=== PATIENT | male | born 1985 | race African-American/Black ===

== ENCOUNTER 2023-09-10 23:12 | Emergency (ER) | payer MEDICAID ==
[~2023-09-10] VITALS: Ht 170.2 cm; Wt 70.6 kg
[~2023-09-10 23:12] MED LIST: ALBU6.7H3 INH; ATEN-42 PO; CYCL15CA PO; DIPH25CA83 PO; DIVA500T3 PO; FLUO60TA PO; GABA-529 PO; LEVE1000 PO; LISI2.5T47 PO; LORA-249 PO; MECL-299 PO; MIDO2.5T PO; MORP15TA67 PO; SOTA80TA PO; TOPA200 PO
[2023-09-10 23:54] VITALS: O2SAT 100
[2023-09-11 00:40] VITALS: TEMP 97.8
[2023-09-11] MEDS ORDERED: LEVETIRACETAM 500MG PREMIX 100 ML IV ONE (01:00)
[2023-09-11] MEDS ORDERED: SODIUM CHLORIDE 0.9% 1,000 ML IV ONE (01:00)
[2023-09-11 01:19] LABS: BASOPHILS % 0.7 % (0.0-2.0); EOSINOPHILS % 2.4 % (0.0-5.0); HEMOGLOBIN. 13.5 g/dL (14.0-18.0); MEAN CORPUSCULAR HEMOGLOBIN 26.7 pg (28.0-32.0); MEAN CORPUSCULAR HGB CONC 32.3 g/dL (31.0-37.0); MEAN CORPUSCULAR VOLUME 82.7 fL (80.0-94.0); MEAN PLATELET VOLUME 8.2 fl (7.4-10.4); MONOCYTES % 9.1 % (2.0-8.0); NEUTROPHILS % 52.8 % (40.0-76.0); PLATELET 228 x1000/uL (130-400); RED BLOOD CELL COUNT 5.07 mill/uL (4.7-6.1); RED CELL DISTRIBUTION WIDTH 14.7 % (11.6-14.6); WHITE BLOOD COUNT 8.8 x1000/uL (4.5-11.0)
[2023-09-11 01:27] LABS: CHLORIDE 105 mEq/L (98-107); INDEX HEMOLYSI 2 (1-3); INDEX ICTERIC 1 (1-4); INDEX LIPEMIC 1 (1-3); POTASSIUM 4.1 mEq/L (3.5-5.1); SODIUM 138 mEq/L (136-145)
[2023-09-11 01:39] LABS: ALANINE AMINOTRANSFERASE 19 IU/L (13-61); ALBUMIN 3.7 g/dL (3.4-5.0); ASPARTATE AMINOTRANSFERASE 19 IU/L (15-37); BILIRUBIN TOTAL 0.2 mg/dL (0.1-1.0); CARBON DIOXIDE 28 mEq/L (21-32); ETHANOL BLOOD < 10 mg/dL (<10); GLUCOSE 109 mg/dL (70-105); PROTEIN TOTAL 7.8 g/dL (6.0-8.3); TROPONIN I HIGH SENSITIVITY 7 ng/L (<78); UREA NITROGEN BLOOD 11 mg/dL (7-21); VALPROIC ACID <3.0 ug/mL ug/mL (50-100)
[2023-09-11] MEDS ORDERED: VALPROIC ACID 250MG CAPSULE PO ONE (04:15)
[2023-09-11 04:30] VITALS: BP 117/75; PULSE 77; RESP 14
== END 2023-09-11 04:30 | disposition home or self-care (01) ==
LOC: ER 23:20
DX: R56.9 Unspecified convulsions (principal); M54.50 Low back pain, unspecified; I50.9 Heart failure, unspecified; I25.2 Old myocardial infarction; Z95.0 Presence of cardiac pacemaker; Z79.899 Other long term (current) drug therapy
CPT/HCPCS: 99285; 80053; 80320; 80165; 85025; 84484; 36415; 71045; 72100; 93005; 96365; J1953; J7030; G0480

== ENCOUNTER 2024-07-29 05:09 | Emergency (ER) | payer MEDICAID ==
[~2024-07-29] VITALS: Ht 162.6 cm; Wt 85.0 kg
[2024-07-29 05:23] VITALS: TEMP 98.2; O2SAT 98
[2024-07-29 05:25] VITALS: BP 116/87; PULSE 82; RESP 18; O2SAT 99
[2024-07-29] MEDS: ONDANSETRON 4MG ODT PO ONE (06:05)
== END 2024-07-29 06:35 | disposition left against medical advice (07) ==
LOC: ER 05:09
DX: R07.89 Other chest pain (principal); I10 Essential (primary) hypertension; J45.909 Unspecified asthma, uncomplicated; Z88.5 Allergy status to narcotic agent; Z88.6 Allergy status to analgesic agent; Z79.899 Other long term (current) drug therapy; Z86.59 Personal history of other mental and behavioral disorders
CPT/HCPCS: 99283; 71045; 93005; Q0162

== ENCOUNTER 2025-06-02 14:03 | Emergency (ER) | payer MEDICAID ==
[~2025-06-02] VITALS: Ht 172.7 cm; Wt 72.5 kg
[~2025-06-02 14:03] MED LIST changes: -MIDO2.5T PO; +MIDO2.5T3 PO
[2025-06-02 14:05] VITALS: O2SAT 99
[2025-06-02] MEDS ORDERED: ONDANSETRON HCL 4MG/2ML INJ IV PRN (14:30)
[2025-06-02] MEDS: LEVETIRACETAM 500MG PREMIX 100 ML IV ONE (15:05)
[2025-06-02 15:20] LABS: CREATININE 1.0 mg/dL (0.6-1.3); UREA NITROGEN BLOOD 13 mg/dL (9-23)
[2025-06-02 15:26] LABS: BASOPHILS % 0.2 % (0.0-2.0); EOSINOPHILS % 1.5 % (0.0-5.0); HEMATOCRIT. 40.1 % (42.0-52.0); HEMOGLOBIN. 12.8 g/dL (14.0-18.0); LYMPHOCYTES % 32.7 % (20.0-50.0); MEAN PLATELET VOLUME 8.7 fl (7.4-10.4); MONOCYTES % 9.3 % (2.0-8.0); NEUTROPHILS % 56.3 % (40.0-76.0); PLATELET 214 x1000/uL (130-400); RED BLOOD CELL COUNT 4.77 mill/uL (4.7-6.1); RED CELL DISTRIBUTION WIDTH 15.0 % (11.6-14.6)
[2025-06-02 15:27] LABS: VALPROIC ACID < 3.0 ug/mL (50-100)
[2025-06-02] MEDS: TOPIRAMATE 100MG TABLET PO SCH (16:10)
[2025-06-02] MEDS: VALPROATE SODIUM 500 MG in SODIUM CHLORIDE 0.9% 100 ML IV SCH (16:10)
[2025-06-02 20:06] VITALS: BP 109/80; PULSE 66; RESP 14; TEMP 36.9; O2SAT 96
[2025-06-05 09:07] LABS: TOPIRAMATE <1.5 ug/mL (2.0-25.0)
== END 2025-06-02 20:23 | disposition home or self-care (01) ==
LOC: ER 14:03
DX: G40.909 Epilepsy, unspecified, not intractable, without status epilepticus (principal); I25.2 Old myocardial infarction; I10 Essential (primary) hypertension; J45.909 Unspecified asthma, uncomplicated; Z88.5 Allergy status to narcotic agent; Z88.6 Allergy status to analgesic agent; Z79.899 Other long term (current) drug therapy; Z86.73 Personal history of transient ischemic attack (TIA), and cerebral infarction without residual deficits
CPT/HCPCS: 99285; 96365; 96375; 80048; 82962; 80165; 85025; 36415; 93005; 82542; 80201; J1953; J3490; J7050

== ENCOUNTER 2025-08-25 12:40 | Inpatient (IN) | payer MEDICAID ==
[~2025-08-25] VITALS: Ht 167.6 cm; Wt 80.3 kg
[~2025-08-25 12:40] MED LIST changes: -ATEN-42 PO; -CYCL15CA PO; +DEPER5 MT; -DIVA500T3 PO; -LISI2.5T47 PO; +MIDO10TA3 MT; -MIDO2.5T3 PO; -SOTA80TA PO
[2025-08-25 12:50] VITALS: O2SAT 100
[2025-08-25] MEDS: ONDANSETRON HCL 4MG/2ML INJ IV ONE (13:39)
[2025-08-25] MEDS: MORPHINE SULFATE 4 MG/ML INJ (FOR IV/IM USE) IV ONE (13:40)
[2025-08-25 15:09] LABS: BASOPHILS % 0.4 % (0.0-2.0); EOSINOPHILS % 3.6 % (0.0-5.0); HEMATOCRIT. 38.1 % (42.0-52.0); HEMOGLOBIN. 12.3 g/dL (14.0-18.0); LYMPHOCYTES % 22.3 % (20.0-50.0); MEAN PLATELET VOLUME 8.2 fl (7.4-10.4); MONOCYTES % 14.0 % (2.0-8.0); NEUTROPHILS % 59.7 % (40.0-76.0); PLATELET 207 x1000/uL (130-400); RED BLOOD CELL COUNT 4.64 mill/uL (4.7-6.1); RED CELL DISTRIBUTION WIDTH 13.9 % (11.6-14.6)
[2025-08-25 15:26] LABS: CREATININE 0.9 mg/dL (0.6-1.3); UREA NITROGEN BLOOD 14 mg/dL (9-23)
[2025-08-25 15:27] LABS: ASPARTATE AMINOTRANSFERASE 29 IU/L (<34); BILIRUBIN DIRECT 0.1 mg/dL (<=3.0); ETHANOL BLOOD < 10 mg/dL (<10); TROPONIN I HIGH SENSITIVITY < 4 ng/L (3.0-53)
[2025-08-25 15:28] LABS: CLARITY URINE CLEAR (CLEAR); COLOR URINE YELLOW (YELLOW); GLUCOSE URINE NEGATIVE (NEGATIVE); KETONES URINE NEGATIVE (NEGATIVE); LEUKOCYTE ESTERASE URINE NEGATIVE (NEGATIVE); NITRITE URINE NEGATIVE (NEGATIVE); OCCULT BLOOD URINE NEGATIVE (NEGATIVE); PH URINE 6.0 (4.5-8.0); PROTEIN URINE NEGATIVE (NEGATIVE); SPECIFIC GRAVITY URINE 1.028 (1.005-1.030); UROBILINOGEN URINE 2.0 E.U./dL (0.2-1.0)
[2025-08-25 15:28] LABS: BILIRUBIN TOTAL 0.3 mg/dL (0.1-1.0); PROTEIN TOTAL 7.0 g/dL (6.0-8.3)
[2025-08-25 15:36] LABS: VALPROIC ACID < 3.0 ug/mL (50-100)
[2025-08-25 15:40] LABS: BACTERIA URINE NONE SEEN; RBC URINE NONE SEEN /hpf (0-2); SQUAMOUS EPITHELIAL CELL URINE NONE SEEN /lpf (RARE/1+); WBC URINE 0-2 /hpf (0-2)
[2025-08-25 15:42] LABS: *AMPHETAMINES SCREEN URINE NEGATIVE (NEGATIVE); *BARBITURATES SCREEN URINE NEGATIVE (NEGATIVE); *BENZODIAZEPINES SCREEN URINE NEGATIVE (NEGATIVE); *COCAINE SCREEN URINE NEGATIVE (NEGATIVE)
[2025-08-25 15:43] LABS: CANNABINOID URINE SCREEN NEGATIVE (NEGATIVE); ECSTASY MDMA SCREEN URINE NEGATIVE (NEGATIVE); METHADONE URINE SCREEN NEGATIVE (NEGATIVE); OPIATES URINE SCREEN PRESUMPTIVE POSITIVE (NEGATIVE); PHENCYCLIDINE URINE SCREEN NEGATIVE (NEGATIVE)
[2025-08-25 17:35] LABS: TROPONIN I HIGH SENSITIVITY < 4 ng/L (3.0-53)
[2025-08-25 18:00] VITALS: BP 130/85; PULSE 67; RESP 17; TEMP 36.4; O2SAT 97
[2025-08-25 20:00] VITALS: BP 106/70; PULSE 65; RESP 17; TEMP 36.6; O2SAT 100
[2025-08-25] MEDS ORDERED: MAGNESIUM/ALUMINUM HYDROXIDE/SIMETHICONE 30ML UDC PO PRN (20:45)
[2025-08-25] MEDS ORDERED: CLONIDINE 0.1MG TABLET PO PRN (20:45)
[2025-08-25] MEDS ORDERED: DIPHENHYDRAMINE 50MG/ML VIAL IV PRN (20:45)
[2025-08-25] MEDS ORDERED: LORAZEPAM 2MG/ML UD SYRINGE IV PRN (20:45)
[2025-08-25] MEDS: INSULIN LISPRO 100 UNITS/ML SUBCUT SCH (21:00)
[2025-08-25] MEDS ORDERED: LEVETIRACETAM 1,000MG in NACL 100ML PREMIX IV SCH (21:00)
[2025-08-25] MEDS: BLOOD SUGAR DIAGNOSTIC STRIP TEST SCH (21:29)
[2025-08-25] MEDS: TOPIRAMATE 100MG TABLET PO SCH (21:30)
[2025-08-25] MEDS: FLUOXETINE HCL 20MG CAPSULE PO SCH (21:30)
[2025-08-25] MEDS: PANTOPRAZOLE 40MG DR TABLET PO SCH (21:30)
[2025-08-25] MEDS: ONDANSETRON HCL 4MG/2ML INJ IV PRN (21:31)
[2025-08-25] MEDS: ZOLPIDEM TARTRATE 5MG TABLET PO PRN (21:31)
[2025-08-25] MEDS: SODIUM CHLORIDE 0.9% 3ML FLUSH IVF SCH (21:31)
[2025-08-25] MEDS: LEVETIRACETAM 1000MG PREMIX 100 ML IV SCH (21:50)
[2025-08-25] MEDS: DIVALPROEX SODIUM 250MG DR TABLET PO SCH (22:10)
[2025-08-25 23:45] VITALS: BP 106/70; PULSE 65; RESP 17; TEMP 36.6404
[2025-08-26] VITALS: BP 113/79; PULSE 70; RESP 17; TEMP 36.4; O2SAT 100
[2025-08-26 04:00] VITALS: BP 108/68; PULSE 61; RESP 18; TEMP 36.6; O2SAT 100
[2025-08-26 08:56] VITALS: BP 106/56; PULSE 76; RESP 18; TEMP 36.6; O2SAT 99
[2025-08-26] MEDS ORDERED: NAPROXEN 375MG TABLET PO PRN (11:30)
[2025-08-26 14:46] VITALS: BP 100/61; PULSE 76; RESP 18; TEMP 36.6; O2SAT 99
[2025-08-26 16:00] VITALS: BP 108/64; PULSE 71; RESP 18; TEMP 36.9; O2SAT 99
[2025-08-26 20:00] VITALS: BP 91/59; PULSE 68; RESP 17; TEMP 36.6; O2SAT 98
[2025-08-27] VITALS (9 sets, daily range): BP systolic 90–121; BP diastolic 58–85; PULSE 59–99; RESP 14–20; TEMP 36.3–36.6; O2SAT 98–100
[2025-08-28] VITALS (7 sets, daily range): BP systolic 93–105; BP diastolic 53–67; PULSE 60–80; RESP 15–18; TEMP 36.2–36.5; O2SAT 96–100
[2025-08-28 13:07] LABS: TOPIRAMATE <1.5 ug/mL (2.0-25.0)
[2025-08-28] MEDS: MIDODRINE HCL 5MG TABLET PO SCH (17:06)
[2025-08-28] MEDS: DEXTROSE 50% WATER 50ML SYRINGE IV PRN (17:33)
[2025-08-29 00:30] VITALS: BP 91/67; PULSE 65; TEMP 36.4; O2SAT 98
[2025-08-29 04:45] VITALS: BP 104/66; PULSE 93; TEMP 36.2; O2SAT 96
[2025-08-29 08:00] VITALS: BP 96/70; PULSE 68; RESP 14; TEMP 36.4; O2SAT 99
[2025-08-29 10:46] LABS: BASOPHILS % 0.5 % (0.0-2.0); EOSINOPHILS % 1.4 % (0.0-5.0); HEMATOCRIT. 46.0 % (42.0-52.0); HEMOGLOBIN. 14.7 g/dL (14.0-18.0); LYMPHOCYTES % 24.7 % (20.0-50.0); MEAN PLATELET VOLUME 9.4 fl (7.4-10.4); MONOCYTES % 9.0 % (2.0-8.0); NEUTROPHILS % 64.4 % (40.0-76.0); PLATELET 262 x1000/uL (130-400); RED BLOOD CELL COUNT 5.62 mill/uL (4.7-6.1); RED CELL DISTRIBUTION WIDTH 14.1 % (11.6-14.6)
[2025-08-29 11:02] LABS: UREA NITROGEN BLOOD 14 mg/dL (9-23)
[2025-08-29 12:00] VITALS: BP 117/83; PULSE 90; RESP 14; TEMP 36.4; O2SAT 95
[2025-08-29 12:24] LABS: CREATININE 1.3 mg/dL (0.6-1.3)
[2025-08-29] MEDS ORDERED: MIDO5TAB4 MT (15:53)
[2025-08-29 16:00] VITALS: BP 92/53; PULSE 80; RESP 14; TEMP 36.8; O2SAT 99
[2025-08-29 20:00] VITALS: BP 97/58; PULSE 59; RESP 16; TEMP 36.2; O2SAT 96
[2025-08-30] VITALS: BP 96/58; PULSE 59; RESP 16; TEMP 36.2; O2SAT 98
[2025-08-30 04:00] VITALS: BP 97/60; PULSE 60; RESP 16; TEMP 36.2; O2SAT 100
[2025-08-30 08:00] VITALS: BP 95/65; PULSE 71; RESP 16; TEMP 36.3; O2SAT 100
[2025-08-30 11:04] LABS: BASOPHILS % 0.2 % (0.0-2.0); EOSINOPHILS % 2.7 % (0.0-5.0); HEMATOCRIT. 44.9 % (42.0-52.0); HEMOGLOBIN. 14.3 g/dL (14.0-18.0); LYMPHOCYTES % 25.7 % (20.0-50.0); MEAN PLATELET VOLUME 8.8 fl (7.4-10.4); MONOCYTES % 6.6 % (2.0-8.0); NEUTROPHILS % 64.8 % (40.0-76.0); PLATELET 233 x1000/uL (130-400); RED BLOOD CELL COUNT 5.51 mill/uL (4.7-6.1); RED CELL DISTRIBUTION WIDTH 14.2 % (11.6-14.6)
[2025-08-30 11:21] LABS: CREATININE 1.3 mg/dL (0.6-1.3)
[2025-08-30 11:22] LABS: UREA NITROGEN BLOOD 15 mg/dL (9-23)
[2025-08-30 11:50] VITALS: BP 103/69; PULSE 96; RESP 18; TEMP 97.3
[2025-08-30 12:00] VITALS: BP 101/69; PULSE 69; RESP 16; TEMP 36.2; O2SAT 100
== END 2025-08-30 15:10 | disposition home or self-care (01) | DRG 53 ==
LOC: ER 12:40 → 6WST 16:01 → EDBEDREQTM 16:06 → EDBEDREQ 16:06 → ENRESERV 17:49 → 6WST 21:59
PROVIDERS: ADMIT Internal Medicine; ATTEND Internal Medicine
PROC: 5A09357 Assistance with Respiratory Ventilation, Less than 24 Consecutive Hours, Continuous Positive Airway Pressure (ICD-10-PCS; principal; 2025-08-27)
DX: G40.409 Other generalized epilepsy and epileptic syndromes, not intractable, without status epilepticus (principal); E11.649 Type 2 diabetes mellitus with hypoglycemia without coma; F31.9 Bipolar disorder, unspecified; I10 Essential (primary) hypertension; I25.10 Atherosclerotic heart disease of native coronary artery without angina pectoris; F84.0 Autistic disorder; K21.9 Gastro-esophageal reflux disease without esophagitis; I34.0 Nonrheumatic mitral (valve) insufficiency; Z79.899 Other long term (current) drug therapy; Z88.8 Allergy status to other drugs, medicaments and biological substances; Z86.73 Personal history of transient ischemic attack (TIA), and cerebral infarction without residual deficits; Z95.0 Presence of cardiac pacemaker; Z88.6 Allergy status to analgesic agent; Z91.148 Patient's other noncompliance with medication regimen for other reason; I25.2 Old myocardial infarction
CPT/HCPCS: 36415; 71045; 80048; 80076; 80165; 80201; 80305; 80320; 81003; 82542; 82962; 84484; 85025; 93005; 94070; 94660; 96374; 96375; 99291; A4606; J1953; J2270; J2405; G0480